=== PATIENT | male | born 1960 | race American Indian/Alaskan Native ===

== ENCOUNTER 2017-07-18 06:20 | Day surgery (SDC) | payer BC ==
[2017-07-18] MEDS ORDERED: WATER FOR IRRIG STERILE ONE (07:29)
--- NOTE | 2017-07-18 07:57 | Anesthesia Consultation ---
Anesthesia Consult and Med Hx Date of service: 07/18/17 - Airway Anesthetic Teeth Evaluation: Good ROM Head & Neck: Adequate Mental/Hyoid Distance: Adequate Mallampati Class: Class III Intubation Access Assessment: Possibly Difficult - Pulmonary Exam CTA: Yes - Cardiac Exam Cardiac Exam: RRR - Pre-Operative Health Status ASA Pre-Surgery Classification: ASA3 Proposed Anesthetic Plan: MAC - Cardiovascular System Hx Valvular Heart Disease: Yes (MVP)
--- NOTE | 2017-07-18 07:57 | Anesthesia Day of Surgery ---
Anesthesia Day of Surgery - Day of Surgery Patient Examined: Yes Patient H&P Reviewed: Yes Patient is NPO: Yes
[2017-07-18] MEDS ORDERED: DIPRIVAN 10 MG/ML IV ONE ×2 (07:58)
[2017-07-18] MEDS ORDERED: NACL 0.9% 1000 ML 1,000 ML IV SCH (08:00)
--- NOTE | 2017-07-18 09:20 | Procedure Note ---
Date of procedure: 07/18/17 Pre-op diagnosis: Colon Polyp Screening Post-op diagnosis: other (Minor,Left Colon diverticular Disease/Minor,Internal Hemorrhoid) Anesthesia: MAC Surgeon: WALE MARTINEZ Estimated blood loss: none Pathology: none Condition: stable Disposition: same day (No Colon Polyps noted. Patient had minor, left Colon diverticular Disease and Minor,Internal Hemorrhoid. Encourage fiber supplements and follow up in 1 to 2 weeks.)
[2017-07-18 09:24] VITALS: BP 102/64
--- NOTE | 2017-07-18 09:42 | History and Physical Report ---
HISTORY OF PRESENT ILLNESS: This is a 56-year-old -[place] gentleman with a family history of cancer but because of his age is here for evaluation for colon polyp screening. Last colonoscopy was done several years earlier. He has a family history of glaucoma and a sister has hypertension. ALLERGIES: No known allergies. MEDICATIONS: He is not on any medication. SOCIAL HISTORY: Denies any history of medicines. Rarely drinks any alcohol. No cardiac issues. He is said to have a leaky valve, possibly a mitral valve prolapse which is tosser's statement is of no significance. PHYSICAL EXAMINATION: VITAL SIGNS: His blood pressure was slightly elevated, but was normal on the day of his evaluation at 152/100. He is afebrile, pulse is 56, height is 66, weight is 246 pounds. HEENT: Showed no JVD. LUNGS: Clear to auscultation. CARDIOVASCULAR: Normal. History of leaky valve. ABDOMEN: Soft. NEUROLOGIC: He is alert and oriented. ASSESSMENT AND PLAN: Colon polyp screening. Plan is to do a colonoscopy at [facility] on 07/18/2017. JOB# [id number] ANTNOIA/AKILAH
--- NOTE | 2017-07-18 09:49 | Operative Report ---
INDICATIONS: This is a 56-year-old gentleman who has a family history of cancer. Last colonoscopy was a few years ago. Also, has a mitral valve prolapse, which his manager clinical services stated is of no significance, so no antibiotic prophylaxis was given. Colonoscopy was done as part of colon polyp screening to make sure there was not any colon polyps present. DESCRIPTION OF PROCEDURE: Procedure was done after getting informed consent with MAC anesthesia. Initial rectal exam was unremarkable. Instrument was passed through the rectum onto the cecum, which was identified by the ileocecal valve and the appendiceal orifice. Visualization was fair to slightly poor. The mucosa was washed with copious amounts of water. No significant pathology was noted in the cecum, ascending colon and the transverse colon. There were a few minor small scattered diverticula noted in the left colon and the rectum showed some minor internal hemorrhoids. No colon polyps or evidence of colitis was noted. No biopsies were done. There was no bleeding associated with the procedure. IMPRESSION: Colon polyp screening with colon polyps noted. Few minor left colon diverticular disease, minor internal hemorrhoids. Prep was fair to slightly poor. Plan is to encourage fiber supplements, have the patient follow up in the office in 1-2 weeks' time. As the prep was slightly suboptimal, possibly to repeat a colonoscopy in a few years' time. JOB# [id number] ANTONIA/AKILAH
== END 2017-07-18 06:21 | disposition home or self-care (01) ==
LOC: GIO 06:20
DX: Z12.11 Encounter for screening for malignant neoplasm of colon (principal); K57.30 Diverticulosis of large intestine without perforation or abscess without bleeding; K64.8 Other hemorrhoids; I34.1 Nonrheumatic mitral (valve) prolapse
CPT/HCPCS: 45378; J2704; J7030

== ENCOUNTER 2019-05-28 09:09 | Outpatient (CLI) | payer BC | END 2019-05-28 09:10 | disposition home or self-care (01) | LOC: LAB 09:09 | DX: E11.9 Type 2 diabetes mellitus without complications (principal); E03.9 Hypothyroidism, unspecified | CPT/HCPCS: 36415; 83036; 84436; 84443 ==

== ENCOUNTER 2019-07-07 10:19 | Day surgery (SDC) | payer BC ==
[~2019-07-07 10:19] MED LIST: ACETAMINOPHEN 500 MG TAB PO ONE; CELECOXIB 200 MG CAP PO NR; GABAPENTIN 400 MG CAP PO SCH; SODIUM CHLORIDE 0.9% 1000 ML 1,000 ML IV SCH; ceFAZolin/Water 2 GM/20 ML 2 GM/20 ML SYRINGE IV NR
[2019-07-07] MEDS ORDERED: ACETAMINOPHEN 500 MG TAB ONE (11:22)
[2019-07-07] MEDS ORDERED: LIDOCAINE MPF (2%) 20 MG/1 ML VIAL 5 ML ONE (11:23)
[2019-07-07] MEDS ORDERED: ROCURONIUM 50 MG/5 ML INJ IV ONE (11:23)
[2019-07-07] MEDS ORDERED: fentaNYL 100 MCG/2 ML INJ ONE (11:23)
[2019-07-07] MEDS ORDERED: propofoL 200 MG/20 ML VIAL IV ONE (11:24)
[2019-07-07] MEDS ORDERED: HYDROmorphone 1 MG/1 ML INJ IV PRN (11:24)
--- NOTE | 2019-07-07 11:32 | Anesthesia Consultation ---
Anesthesia Consult and Med Hx Date of service: 07/07/19 - Airway Anesthetic Teeth Evaluation: Good ROM Head & Neck: Adequate Mental/Hyoid Distance: Adequate Mallampati Class: Class II Intubation Access Assessment: Probably Good - Pulmonary Exam CTA: Yes - Cardiac Exam Cardiac Exam: RRR - Pre-Operative Health Status ASA Pre-Surgery Classification: ASA2 Proposed Anesthetic Plan: General - Pulmonary Hx Smoking: No Hx Respiratory Symptoms: Yes (nasal congestion and runny nose; no pulmonary symptoms, fevers, or chills) Hx Sleep Apnea: No - Cardiovascular System Hx Hypertension: No Hx Coronary Artery Disease: No (normal stress test, TTE, and coronary calcium test in 03/2019 per patient) Hx Heart Attack/AMI: No Hx Percutaneous Transluminal Coronary Angioplasty (PTCA): No Hx Cardia Arrhythmia: No Hx Valvular Heart Disease: Yes (patient reports "leaky valve" but uncertain of official diagnosis) - Central Nervous System CVA: No Hx Psychiatric Problems: No - Gastrointestinal Hx Gastroesophageal Reflux Disease: No - Endocrine Hx Renal Disease: No Hx Liver Disease: No Hx Insulin Dependent Diabetes: No Hx Non-Insulin Dependent Diabetes: No Hx Thyroid Disease: No - Other Systems Hx Obesity: No - Additional Comments Anesthesia Medical History Comments: No hx anesthetic complications.
--- NOTE | 2019-07-07 11:33 | Anesthesia Day of Surgery ---
Anesthesia Day of Surgery - Day of Surgery Patient Examined: Yes Patient H&P Reviewed: Yes Patient is NPO: Yes
[2019-07-07] MEDS ORDERED: BUPIVACAINE/PF (0.5%) 5 MG/1 ML 30 ML VIAL INFILTRATI ONE ×2 (11:40→12:38)
[2019-07-07] MEDS ORDERED: LIDOCAINE (1%) 10 MG/1 ML VIAL 20 ML MDV ONE (11:40)
[2019-07-07] MEDS ORDERED: MIDAZOLAM 2 MG/2 ML INJ ONE (12:00)
[2019-07-07] MEDS ORDERED: MIDAZOLAM 2 MG/2 ML INJ IV NR (12:00)
[2019-07-07] MEDS ORDERED: HYDROGEN PEROXIDE 118 ML SOLUTION ONE (12:11)
[2019-07-07] MEDS ORDERED: LIDOCAINE 2% UROJECT 10 ML JELLY ONE (12:13)
[2019-07-07] MEDS ORDERED: KETOROLAC 30 MG/1 ML INJ ONE (12:24)
[2019-07-07] MEDS ORDERED: ONDANSETRON 4 MG/2 ML INJ ONE (12:24)
[2019-07-07] MEDS ORDERED: dexAMETHasone 20 MG/5 ML VIAL ONE (12:24)
[2019-07-07] MEDS ORDERED: LIDOCAINE (1%) 10 MG/1 ML VIAL 20 ML MDV INFILTRATI ONE (12:36)
[2019-07-07] MEDS ORDERED: GLYCOPYRROLATE 0.4 MG/2 ML INJ ONE (12:41)
[2019-07-07] MEDS ORDERED: NEOSTIGMINE 10MG/10 ML INJ MDV ONE (12:41)
[2019-07-07] MEDS ORDERED: LIDOCAINE 2% UROJECT 10 ML JELLY UR ONE (12:50)
--- NOTE | 2019-07-07 12:59 | Short Stay Summary ---
Short Stay Documentation Date of service: 07/07/19 - History H&P: obtained from office - Allergies and Medications Current Medications: Allergies No Known Allergies Allergy (Verified 07/01/19 11:45) Home Medications Medication Instructions Recorded Confirmed Last Taken Type No Known Home Medications [No 07/01/19 07/01/19 Unknown History Reported Home Medications] Active Medications Celecoxib (Celebrex) 400 mg PO PREOP NR Stop: 07/07/19 23:59 Last Admin: 07/07/19 11:24 Dose: 400 mg Documented by: Gabapentin (Gabapentin) 1,200 mg PO PREOP MARY Last Admin: 07/07/19 11:28 Dose: 1,200 mg Documented by: Hydromorphone HCl (Dilaudid) 0.5 mg IV Q10MIN PRN PRN Reason: Pain , Severe (7-10) Stop: 07/07/19 22:00 Sodium Chloride (Nacl 0.9% 1000 Ml) 1,000 mls @ 100 mls/hr IV DIRECT MARY Last Admin: 07/07/19 11:23 Dose: 100 mls/hr Documented by: Cefazolin Sodium (Ancef/Sterile Water 2 Gm/20 Ml) 2 gm in 20 mls @ 80 mls/hr IV PREOP NR; Protocol Stop: 07/07/19 23:59 Midazolam HCl (Versed) 2 mg IV PREOP NR Stop: 07/07/19 23:59 - Physical exam General appearance: no acute distress HEENT: Atraumatic Lungs: Normal air movement Neurological: Normal speech - Brief post op/procedure progress note Date of procedure: 07/07/19 (dictation:[id number]) Pre-op diagnosis: anorectal fistula Procedure: EUA; fistulotomy EBL - min IVF 300cc Anesthesia: GETA Findings: superficial fistula tract above the sphincter level Surgeon: BONG LINDA Estimated blood loss: minimal Pathology: none Condition: stable - Hospital course Hospital course: uneventful - Disposition Condition at discharge: Stable Disposition: DC-01 TO HOME OR SELFCARE Short Stay Discharge Plan Activity: advance as tolerated Diet: regular Wound: open to air, keep clean and dry, per your surgeon's advice Special Instructions: no heavy lifting Additional Instructions: Post Operative Instructions Activity: no heavy lifting for next 1 week. May shower tomorrow. Pat dry the wound or wounds. Keep incision sites clean and dry After surgery, start with a light diet. Consider starting with liquids. If you do well, you can advance to a regular diet as you feel comfortable. Do Sitz baths for 5-10minutes after each bowel movement. Please do at least 2-3 times a day. More is better. Pain Medication Schedule for the first 2 days after surgery: Gabapentin 900mg twice a day Celebrex (celecoxib) 200mg twice a day Tylenol 500mg four times a day (every 6 hours) After the first 2 days, then take alternating doses of ibuprofen and Tylenol as needed for pain. Take 600 mg of ibuprofen every 6 hours as needed. Take 500 mg of Tylenol every 6 hours as needed. You should alternate these 2 medicines. Make sure you take the ibuprofen with food. It is very important that you use the prescription narcotic pain medicine (hydrocodone) only for very severe pain. Do not take the narcotic medicine before you try using all the medications listed above. We will call you in a couple of days to see how youre doing. If you have any questions or concerns, always feel free to call the clinic ([phone]) at any time. Follow up with: NARCISO ZHAO MD [Primary Care Provider] - 7 Days BONG LINDA MD [Staff Physician] - 14 Days Forms: Work/School Release Form Prescriptions: Celecoxib [celeBREX] 200 mg PO BID #4 capsule Gabapentin 900 mg PO BID #12 cap HYDROcodone/APAP 7.5-325 [[place] 7.5-325 mg TAB] 2 each PO Q6HR PRN #20 tablet PRN Reason: Pain , Severe (7-10)
[2019-07-07 13:37] VITALS: BP 116/72
--- NOTE | 2019-07-07 19:16 | Post Anesthesia Evaluation ---
- Post Anesthesia Evaluation Patient Participated: Yes Airway Patent: Yes Stable Respiratory Function: Yes Nausea/Vomiting: No Temp > 96.8F: Yes Pain Manageable: Yes Adequeate Hydration: Yes Anesthesia Complications: No
--- NOTE | 2019-07-08 14:03 | Operative Report ---
PREOPERATIVE DIAGNOSIS: Anorectal fistula. POSTOPERATIVE DIAGNOSIS: Anorectal fistula. PROCEDURE: 1. Exam under anesthesia. 2. Fistulotomy. 3. Left pudendal nerve block. ATTENDING PHYSICIAN: Caitlyn Rangel M.D. ANESTHESIA: General. ESTIMATED BLOOD LOSS: Minimal. FLUIDS: 300 mL. FINDINGS: The patient had a superficial fistula that was essentially restricted to the anorectal junction. IMPLANTS: None. DISPOSITION: Stable, transferred to Recovery Room. INDICATIONS: This is a 58-year-old male who presented with chronic drainage from the anal region. Evaluation suggested an anorectal fistula. The patient assessed to be in need for EUA and possible fistulotomy versus Seton placement. Procedure, risks, benefits were explained to the patient. Risks included but were not limited to infection, bleeding, pain, injury to surrounding structures, possible need for further procedures in the future. The patient understood and consented. OPERATIVE NOTE: The patient was brought to the operating room. After general anesthesia was established, the patient was placed in a prone jackknife position. All pressure points were padded. SCDs were in place. Antibiotics had been given. Time-out was called. I began by identifying the location of the pudendal nerve. Lidocaine 1% and 0.5% Marcaine combination were used to inject that area with 20 mL. We aspirated as we inserted the needle. There was no blood encountered. I then proceeded to do a digital exam of the rectum. I found no masses. Speculum exam was done. We could clearly see the distal portion of the fistula. I could not see any obvious proximal portion. Using a 25-gauge Angiocath, I injected hydrogen peroxide through the distal end and then we identified the proximal end. It appeared to be fairly close and superficial. Lacrimal probe was placed through that area. The path was fairly tight, but I was able to eventually get the lacrimal probe to go through it, appeared to be very superficial. I could palpate the sphincter, which was deep to that area. Therefore, I felt comfortable opening up that area rather than placing a Seton; however, we cautiously proceeded going layer by layer just to make sure that it was not deeper than what I thought. Indeed the tract was very superficial. We opened up the tract completely. I cauterized the tract itself. We had excellent hemostasis. There were no other abnormalities. I placed Surgifoam covered with 1% lidocaine jelly into the anus. Skin was cleaned and dried, dressings were placed. The patient tolerated the procedure well. There were no complications. All counts were correct at the end of the case. I spoke with the at the end of the case, she was very appreciative. JOB# [id number] JULIANA/AKILAH GARCIA
== END 2019-07-07 10:20 | disposition home or self-care (01) ==
LOC: OR 10:19
PROVIDERS: ATTEND Surgery
DX: K60.5 Anorectal fistula (principal); Z79.899 Other long term (current) drug therapy; Z72.89 Other problems related to lifestyle; Z98.890 Other specified postprocedural states; Z80.42 Family history of malignant neoplasm of prostate
CPT/HCPCS: 46270; C1887; J0690; J1100; J1885; J2250; J2405; J2704; J2710; J3010; J7030

== ENCOUNTER 2021-02-03 09:15 | Outpatient (CLI) | payer BC ==
[2021-02-03 09:57] LABS: BUN/Creatinine Ratio 11; Blood Urea Nitrogen 10 mg/dL (9-20); Calcium 9.5 mg/dL (8.4-10.2); Chol/HDL Ratio 2.78 %; HDL Cholesterol 71 mg/dL (40-59); Hemolysis Index 6; LDL Cholesterol,Direct 128 mg/dL (50-130)
== END 2021-02-03 09:16 | disposition home or self-care (01) ==
LOC: LAB 09:15
PROVIDERS: ATTEND Internal Medicine Geriatric Medicine
DX: Z12.5 Encounter for screening for malignant neoplasm of prostate (principal); Z13.1 Encounter for screening for diabetes mellitus; E78.00 Pure hypercholesterolemia, unspecified
CPT/HCPCS: 36415; 80048; 80061; 84153

== ENCOUNTER 2021-04-29 07:11 | Day surgery (SDC) | payer BC ==
[~2021-04-29 07:11] MED LIST changes: -ACETAMINOPHEN 500 MG TAB PO ONE; -CELECOXIB 200 MG CAP PO NR; -GABAPENTIN 400 MG CAP PO SCH; -ceFAZolin/Water 2 GM/20 ML 2 GM/20 ML SYRINGE IV NR
--- NOTE | 2021-04-29 07:54 | Anesthesia Consultation ---
Anesthesia Consult and Med Hx Date of service: 04/29/21 - Airway Anesthetic Teeth Evaluation: Good ROM Head & Neck: Adequate Mental/Hyoid Distance: Adequate Mallampati Class: Class I Intubation Access Assessment: Good - Pulmonary Exam CTA: Yes - Cardiac Exam Cardiac Exam: RRR - Pre-Operative Health Status ASA Pre-Surgery Classification: ASA2 Proposed Anesthetic Plan: MAC - Pulmonary Hx Smoking: No Hx Respiratory Symptoms: Yes (nasal congestion and runny nose; no pulmonary symptoms, fevers, or chills) Hx Sleep Apnea: No - Cardiovascular System Hx Hypertension: No Hx Coronary Artery Disease: No (normal stress test, TTE, and coronary calcium test in 03/2019 per patient) Hx Heart Attack/AMI: No Hx Percutaneous Transluminal Coronary Angioplasty (PTCA): No Hx Cardia Arrhythmia: No Hx Valvular Heart Disease: Yes (patient reports "leaky valve" but uncertain of official diagnosis) - Central Nervous System CVA: No Hx Psychiatric Problems: No - Gastrointestinal Hx Gastroesophageal Reflux Disease: No - Endocrine Hx Renal Disease: No Hx Liver Disease: No Hx Insulin Dependent Diabetes: No Hx Non-Insulin Dependent Diabetes: No Hx Thyroid Disease: No - Other Systems Hx Alcohol Use: Yes (RARELY) Hx Substance Use: No Hx Obesity: No
--- NOTE | 2021-04-29 07:54 | Anesthesia Day of Surgery ---
Anesthesia Day of Surgery - Day of Surgery Patient Examined: Yes Patient H&P Reviewed: Yes Patient is NPO: Yes
[2021-04-29] MEDS ORDERED: propofoL 200 MG/20 ML VIAL IV ONE ×2 (10:06→10:12)
[2021-04-29] MEDS ORDERED: LIDOCAINE MPF (2%) 20 MG/1 ML VIAL 5 ML ONE (10:07)
--- NOTE | 2021-04-29 10:32 | Procedure Note ---
Date of procedure: 04/29/21 Pre-op diagnosis: Colon Polyp Screening/ F/H/O Cancer Post-op diagnosis: other (No Colon Polyps noted/ Minor, Diverticuli/ Minor,Internal Hemorrhoids) Anesthesia: MAC Surgeon: WALE MARTINEZ Estimated blood loss: none Pathology: none Condition: stable Disposition: same day (Encourage fiber iake; presume home medication and F/U in 1 to 2 weeks ([phone]).)
--- NOTE | 2021-04-29 11:22 | Operative Report ---
DATE OF SURGERY: 02/03/2021 PROCEDURE: Colonoscopy. INDICATIONS: This is a 60-year-old -[place] gentleman who has a family history of cancer. Colonoscopy was done to make sure that there was no colon polyps present. DESCRIPTION OF PROCEDURE: Procedure was done after getting informed consent with MAC anesthesia. Initial rectal examination was unremarkable. Instrument was passed through the rectum onto the cecum, which was identified by the ileocecal valve and appendiceal orifice. Visualization was fair to good. The cecum was also visualized on the retroverted view. The scope was withdrawn to the hepatic flexure and reintroduced to the cecum. No additional pathology was noted. There were no polyps noted in the cecum, ascending colon and transverse colon. There was a few minor diverticula noted in the left colon and the rectum showed some minor internal hemorrhoid on the retroverted view. ASSESSMENT: Colon polyp screening, history of cancer. No colon polyps noted. Minor diverticula, minor internal hemorrhoid. PLAN: To encourage fiber supplement. Resume home medication. Follow up in the office in 1-2 weeks' time. Procedure was done in the GI lab with assistance of the GI lab team, which included the GI nurse, the geotechnician and with assistance of Anesthesia. TID: [id number] RECEIPT: [id number] ANTONIA/ALEXX/VU
[2021-04-29 15:58] VITALS: BP 129/77
== END 2021-04-29 07:12 | disposition home or self-care (01) ==
LOC: GIO 07:11
DX: Z12.11 Encounter for screening for malignant neoplasm of colon (principal); K57.30 Diverticulosis of large intestine without perforation or abscess without bleeding; K64.8 Other hemorrhoids; K63.89 Other specified diseases of intestine; Z80.0 Family history of malignant neoplasm of digestive organs; Z79.899 Other long term (current) drug therapy; Z98.890 Other specified postprocedural states
CPT/HCPCS: 45378; J2704; J3490; J7030; J7120; Q0162